=== PATIENT | female | born 1960 | race Caucasian/White ===

== ENCOUNTER 2019-01-03 19:06 | Emergency (ER) | payer BC ==
[2019-01-03 19:30] VITALS: BP 109/48; PULSE 75; RESP 20; TEMP 98.5
--- NOTE | 2019-01-03 20:25 | XR ---
EXAMINATION TYPE: XR soft tissue neck DATE OF EXAM: 01/03/2019 COMPARISON: NONE HISTORY: Right-sided facial swelling and cough TECHNIQUE: AP and lateral soft tissue technique FINDINGS: The airway is unremarkable. No incidental findings. IMPRESSION: Negative examination.
[2019-01-03] MEDS ORDERED: AMOXIC-POT CLAV 875MG STARTER 2 EACH TABLET PO STA (20:38)
--- NOTE | 2019-01-03 20:38 | ED ---
URI HPI - General Chief Complaint: Upper Respiratory Infection Stated Complaint: Neck swelling Time Seen by Provider: 01/03/19 19:50 Source: patient Mode of arrival: ambulatory Limitations: no limitations - History of Present Illness Initial Comments: 58-year-old female no past medical history presents today for chief complaint of left-sided upper neck swelling. Patient states that shortly after eating she developed mild tenderness to the left side of her face to the angle of the mandible. Patient states she noticed swelling which looked mirror. Patient mainly presented for evaluation. Patient denies any sore throat difficulty breathing difficulty swallowing, recent weight loss, nausea vomiting abdominal pain, headache, neck stiffness, ingestion of fish or peanuts she denies any tongue or lip swelling she denies any rash. Patient states she has not had a fever night sweats chills or malaise. Patient states she feels fine just has tenderness in the area as well as swelling. Remaining review of systems negative, patient denies any recent shortness of breath, chest pain, back pain, abdominal pain, nausea or vomiting, numbness or tingling, dysuria or hematuria, constipation or diarrhea, headaches or visual changes, or any other complaints. upon arrival patient appears well no signs of acute distress - Related Data Home Medications Medication Instructions Recorded Confirmed Omeprazole [PriLOSEC] 20 mg PO DAILY 10/09/17 01/03/19 Previous Rx's Medication Instructions Recorded Amoxic-Pot Clav 875-125Mg 1 tab PO Q12HR 10 Days #20 tablet 01/03/19 [Augmentin 875-125] Allergies Allergy/AdvReac Type Severity Reaction Status Date / Time erythromycin base Allergy Itching Verified 10/09/17 18:23 Review of Systems ROS Statement: Those systems with pertinent positive or pertinent negative responses have been documented in the HPI. ROS Other: All systems not noted in ROS Statement are negative. Past Medical History Past Medical History: GERD/Reflux History of Any Multi-Drug Resistant Organisms: None Reported Past Surgical History: Section, Hysterectomy, Orthopedic Surgery, Tonsillectomy Past Psychological History: No Psychological Hx Reported Smoking Status: Current every day smoker Past Alcohol Use History: None Reported Past Drug Use History: None Reported General Exam - General Exam Comments Initial Comments: General: The patient is awake and alert, in no distress, and does not appear acutely ill. Eye: Pupils are equal, round and reactive to light, extra-ocular movements are intact. No nystagmus. There is normal conjunctiva bilaterally. No signs of icterus. Ears, nose, mouth and throat: There are moist mucous membranes and no oral lesions. Submandibular gland swelling. Tender to palpation. No lymphadenopathy palpable. Oropharynx nonerythematous of tonsillar enlargement or exudate or lesion. Uvula midline. No drooling or tripoding no muffled voice. Neck: The neck is supple, there is no tenderness or JVD. Cardiovascular: There is a regular rate and rhythm. No murmur, rub or gallop is appreciated. Respiratory: Lungs are clear to auscultation, respirations are non-labored, breath sounds are equal. No wheezes, stridor, rales, or rhonchi. Gastrointestinal: Soft, non-distended, non-tender abdomen without masses or organomegaly noted. There is no rebound or guarding present. No CVA tenderness. Bowel sounds are unremarkable. Musculoskeletal: Normal ROM, no tenderness. Strength 5/5. Sensation intact. Pulses equal bilaterally 2+. Neurological: A&O x 3. CN II-XII intact, There are no obvious motor or sensory deficits. Coordination appears grossly intact. Speech is normal. Skin: Skin is warm and dry and no rashes or lesions are noted. Psychiatric: Cooperative, appropriate mood & affect, normal judgment. Limitations: no limitations Course Vital Signs 01/03/19 19:26 Temperature 98.5 F Pulse Rate 75 Respiratory 20 Rate Blood Pressure 109/48 O2 Sat by Pulse 98 Oximetry Medical Decision Making - Medical Decision Making Well-appearing 58 year old female. On physical examination there is swelling of the submandibular gland. Patient denies any infectious symptoms. No fever chills night sweats general malaise. Patient afebrile upon arrival. Physical exam findings not consitent with allergic reaction. Patient appears nontoxic. Patient's symptoms began the past 4 hours. Patient states shortly after eating. X-rays negative for calcifications or stone. Patient will be started on Augmentin and discharged with ENT follow-up. Return parameters were discussed at length the patient who verbalizes understanding. Discussed the case attending provider Dr. Nathan was agreeable patient plan of discharge. Patient is agreeable plan discharged by questions at this time. I did discuss the importance of lozenges. Disposition Clinical Impression: Submandibular gland swelling Disposition: HOME SELF-CARE Condition: Good Instructions (If sedation given, give patient instructions): Sialoadenitis (ED) Additional Instructions: Please use medication as discussed. Please follow-up with ENT in the next 2 days of symptoms have not improved. Please use lemon drops as discussed. Please return to emergency room if the symptoms increase or worsen or for any other concerns. Prescriptions: Amoxic-Pot Clav 875-125Mg [Augmentin 875-125] 1 tab PO Q12HR 10 Days #20 tablet Is patient prescribed a controlled substance at d/c from ED?: No Referrals: Ethan Villa DO [Primary Care Provider] - 1-2 days Mathieu Calvillo MD [STAFF PHYSICIAN] - 1-2 days Time of Disposition: 20:37
== END 2019-01-03 20:58 | disposition home or self-care (01) ==
LOC: EC 19:06
DX: K11.8 Other diseases of salivary glands (principal); K21.9 Gastro-esophageal reflux disease without esophagitis; F17.200 Nicotine dependence, unspecified, uncomplicated; Z90.89 Acquired absence of other organs; Z79.899 Other long term (current) drug therapy; Z88.1 Allergy status to other antibiotic agents
CPT/HCPCS: 70360; 99283